=== PATIENT | female | born 1940 | race Asian ===

== ENCOUNTER 2022-06-24 13:20 | Inpatient (IN) | payer MEDICARE, MEDICAID ==
[~2022-06-24] VITALS: Ht 160 cm; Wt 55.8 kg
[2022-06-24] MEDS ORDERED: ONDANSETRON HCL 4MG/2ML INJ IV ONE (14:00)
[2022-06-24] MEDS ORDERED: IOHEXOL-350 100 ML BOTTLE ONE (14:10)
[2022-06-24 14:37] LABS: BASOPHILS % 0.2 % (0.0-2.0); HEMATOCRIT. 38.7 % (36.0-48.0); HEMOGLOBIN. 12.9 g/dL (12.0-16.0); LYMPHOCYTES % 11.2 % (20.0-50.0); MEAN CORPUSCULAR HEMOGLOBIN 29.3 pg (28.0-32.0); MEAN CORPUSCULAR VOLUME 88.2 fL (81.0-99.0); MEAN PLATELET VOLUME 8.3 fl (7.4-10.4); MONOCYTES % 4.1 % (2.0-8.0); NEUTROPHILS % 84.5 % (40.0-76.0); PLATELET 246 x1000/uL (130-400); RED BLOOD CELL COUNT 4.39 mill/uL (4.2-5.4); RED CELL DISTRIBUTION WIDTH 13.6 % (11.6-14.6)
[2022-06-24 14:41] LABS: PROTHROMBIN TIME 11.1 sec (9.6-11.0)
[2022-06-24 15:01] LABS: CHLORIDE 101 mEq/L (98-107)
[2022-06-24 15:25] LABS: ETHANOL BLOOD < 10 mg/dL
[2022-06-24] MEDS ORDERED: SODIUM CHLORIDE 0.9% 1,000 ML IV ONE (17:45)
[2022-06-24 17:46] LABS: CLARITY URINE CLEAR (CLEAR); COLOR URINE YELLOW (YELLOW); KETONES URINE TRACE (NEGATIVE); LEUKOCYTE ESTERASE URINE NEGATIVE (NEGATIVE); NITRITE URINE NEGATIVE (NEGATIVE); OCCULT BLOOD URINE TRACE (NEGATIVE); PH URINE 5.5 (4.5-8.0); PROTEIN URINE 1+ (NEGATIVE); SPECIFIC GRAVITY URINE 1.051 (1.005-1.030); UROBILINOGEN URINE 0.2 E.U./dL (0.2-1.0)
[2022-06-24 18:01] LABS: *AMPHETAMINES SCREEN URINE NEGATIVE (NEGATIVE); *BARBITURATES SCREEN URINE NEGATIVE (NEGATIVE); *BENZODIAZEPINES SCREEN URINE NEGATIVE (NEGATIVE); *COCAINE SCREEN URINE NEGATIVE (NEGATIVE); CANNABINOID URINE SCREEN NEGATIVE (NEGATIVE); METHADONE URINE SCREEN NEGATIVE (NEGATIVE); OPIATES URINE SCREEN NEGATIVE (NEGATIVE); PHENCYCLIDINE URINE SCREEN NEGATIVE (NEGATIVE)
[2022-06-24 21:00] VITALS: BP 112/50
[2022-06-25] VITALS: BP 145/50
[2022-06-25] MEDS ORDERED: CLONIDINE 0.1MG TABLET PO PRN
[2022-06-25] MEDS ORDERED: SODIUM CHLORIDE 0.9% 1,000 ML IV SCH
[2022-06-25] MEDS ORDERED: DIPHENHYDRAMINE 50MG/ML VIAL IV PRN
[2022-06-25] MEDS ORDERED: IPRATROPIUM/ALBUTEROL 0.5-3(2.5)MG/3ML NEB HHN PRN
[2022-06-25] MEDS ORDERED: ONDANSETRON HCL 4MG/2ML INJ IV PRN
[2022-06-25] MEDS ORDERED: ACETAMINOPHEN 325MG TABLET PO PRN
[2022-06-25] MEDS ORDERED: ASPI-1497 PO (01:20)
[2022-06-25] MEDS ORDERED: SITA1TAB6 MT (01:20)
[2022-06-25] MEDS ORDERED: LOPE2CAP PO (01:20)
[2022-06-25] MEDS ORDERED: ROSU5TAB PO (01:20)
[2022-06-25] MEDS ORDERED: AMLO10TA80 PO (01:20)
[2022-06-25] MEDS ORDERED: METO-411 PO (01:20)
[2022-06-25] MEDS ORDERED: ALLO100T PO (01:20)
[2022-06-25] MEDS ORDERED: PROT40 PO (01:20)
[2022-06-25] MEDS ORDERED: CIPR500S3 PO (01:31)
[2022-06-25] MEDS ORDERED: CALC-3 PO (01:33)
[2022-06-25 06:00] VITALS: BP 140/60
[2022-06-25 06:54] LABS: BASOPHILS % 0.4 % (0.0-2.0); EOSINOPHILS % 0.4 % (0.0-5.0); HEMATOCRIT. 33.1 % (36.0-48.0); HEMOGLOBIN. 11.6 g/dL (12.0-16.0); LYMPHOCYTES % 33.7 % (20.0-50.0); MEAN CORPUSCULAR HEMOGLOBIN 30.5 pg (28.0-32.0); MEAN PLATELET VOLUME 7.9 fl (7.4-10.4); MONOCYTES % 9.5 % (2.0-8.0); PLATELET 225 x1000/uL (130-400); RED BLOOD CELL COUNT 3.81 mill/uL (4.2-5.4); RED CELL DISTRIBUTION WIDTH 13.5 % (11.6-14.6)
[2022-06-25 07:48] LABS: CHLORIDE 107 mEq/L (98-107)
[2022-06-25 08:00] VITALS: BP 163/55
[2022-06-25 12:00] VITALS: BP 140/49
[2022-06-25 16:00] VITALS: BP 137/50
[2022-06-25 16:19] VITALS: BP 137/50
== END 2022-06-25 17:10 | disposition home health service (06) | DRG 392 ==
LOC: ER 13:20 → 6EST 16:56 → EDBEDREQSVC 16:58 → EDBEDREQTM 16:58 → EDBEDREQ 16:58 → ENRESERV 20:25 → ER 21:10
PROVIDERS: ADMIT Family Medicine Adult Medicine; ATTEND Family Medicine Adult Medicine
DX: K52.9 Noninfective gastroenteritis and colitis, unspecified (principal); I11.0 Hypertensive heart disease with heart failure; I50.9 Heart failure, unspecified; D64.9 Anemia, unspecified; I67.1 Cerebral aneurysm, nonruptured; M79.3 Panniculitis, unspecified; N81.10 Cystocele, unspecified; Z79.84 Long term (current) use of oral hypoglycemic drugs
CPT/HCPCS: 36415; 70496; 70498; 71045; 74176; 80053; 80305; 80320; 81003; 83880; 84443; 84484; 85025; 93005; 93970; 99291; J2405; J7030; Q9967; G0480